=== PATIENT | male | born 1985 ===

== ENCOUNTER 2018-11-14 22:39 | Emergency (ER) | payer OTHER ==
[2018-11-14 22:40] VITALS: BMI 29.5
[2018-11-14 22:51] VITALS: BP 137/85; PULSE 62; RESP 18; TEMP 98.2; O2SAT 98
--- NOTE | 2018-11-14 23:34 | ED PDOC ---
Upper Extremity Pain/Injury Time Seen by Provider: 11/14/18 23:15 Chief Complaint (Nursing): Upper Extremity Problem/Injury Chief Complaint (Provider): left hand 4th digit injury History Per: Patient History/Exam Limitations: no limitations Onset/Duration Of Symptoms: Hrs (6) Current Symptoms Are (Timing): Still Present Additional Complaint(s): 33 y/o male presents for evaluation of injury to left hand 4th digit x 6 hours ago. Patient states he was at work and his finger got caught between a fork lift and plate. PAtient reports pain and swelling to tip of finger. Denies numbness/weakness left upper extremity, limitation of movement. Past Medical History Reviewed: Historical Data, Nursing Documentation, Vital Signs Vital Signs: Last Vital Signs Temp 98.2 F 11/14/18 22:48 Pulse 62 11/14/18 22:48 Resp 18 11/14/18 22:48 BP 137/85 11/14/18 22:48 Pulse Ox 98 11/14/18 22:48 - Medical History PMH: Chronic Pain (Back) - Surgical History Surgical History: No Surg Hx - Family History Family History: States: Unknown Family Hx - Immunization History Hx Tetanus Toxoid Vaccination: No Hx Influenza Vaccination: No Hx Pneumococcal Vaccination: No - Home Medications Home Medications: Ambulatory Orders Medication Instructions Recorded Naproxen [Naprosyn Tab] 375 mg PO TID PRN #21 tab 08/13/16 diaZEpam [Valium] 5 mg PO Q6 PRN #8 tab 08/13/16 oxyCODONE/Acetaminophen [Percocet 1 ea PO Q6 PRN #5 tab 08/13/16 5/325 mg Tab] Cyclobenzaprine [Cyclobenzaprine 10 mg PO Q8H #20 tab 07/03/18 HCl] Naproxen [Naprosyn] 500 mg PO BID PRN #20 tablet 07/03/18 Ibuprofen [Motrin Tab] 1 tab PO Q6 PRN #15 tab 11/15/18 - Allergies Allergies/Adverse Reactions: Allergies Allergy/AdvReac Type Severity Reaction Status Date / Time No Known Allergies Allergy Verified 07/03/18 16:01 Review of Systems ROS Statement: Except As Marked, All Systems Reviewed And Found Negative Musculoskeletal: Positive for: Hand Pain (left hand 4th digit) Physical Exam - Reviewed Nursing Documentation Reviewed: Yes Vital Signs Reviewed: Yes - Physical Exam Appears: Positive for: Well, Non-toxic, No Acute Distress Pulses-Radial (L): 2+ Pulses-Radial (R): 2+ Extremity: Positive for: Normal ROM, Capillary Refill (<3 sec b/l UE), Swelling (distal aspect left hand 4th digit with swelling, eccyhmosis extending to PIP, tender to touch; FROM. Distal NV/motor intact) - ECG O2 Sat by Pulse Oximetry: 98 - Progress ED Course And Treament: -xray left hand 4th digit -ibuprofen PO Patient educated on findings, left hand 4th digit placed in finger splint. Advised RICE Rx Ibuprofen provided Follow up with hand specialist Return precautions given Disposition - Clinical Impression Clinical Impression: Finger fracture - Patient ED Disposition Is Patient to be Admitted: No Counseled Patient/Family Regarding: Studies Performed, Diagnosis, Need For Followup, Rx Given - Disposition Referrals: Orthopedic Clinic at [Outside] Waldemar Elizondo MD [Medical Doctor] - [facility] [place] [Outside] Disposition: Routine/Home Disposition Time: 01:08 Condition: STABLE Prescriptions: Ibuprofen [Motrin Tab] 1 tab PO Q6 PRN #15 tab PRN Reason: Pain, Moderate (4-7) Instructions: Finger Fracture Forms: [facility] ED School/Work Excuse Print Language: SLOVAK
--- NOTE | 2018-11-15 08:33 | RAD ---
Date of service: 11/14/2018 PROCEDURE: Left ring finger radiographs. HISTORY: trauma COMPARISON: None. TECHNIQUE: AP radiograph of the left hand, as well as spot oblique and lateral images of index finger were obtained. 4 views obtained. FINDINGS: LEFT RING FINGER: Comminuted nondisplaced fracture of the tuft of the distal phalanx left ring finger. Remainder of the left hand (as seen on the AP view) is grossly unremarkable. JOINTS: No subluxation or dislocation. Joint spaces appear normal throughout the left hand. SOFT TISSUES: Normal. OTHER FINDINGS: None. IMPRESSION: Comminuted tuft fracture distal phalanx left ring finger. No dislocation.
== END 2018-11-15 00:31 | disposition home or self-care (01) ==
LOC: H.ER 22:39
DX: S62.614A Displaced fracture of proximal phalanx of right ring finger, initial encounter for closed fracture (principal); W23.0XXA Caught, crushed, jammed, or pinched between moving objects, initial encounter; Y99.0 Civilian activity done for income or pay